=== PATIENT | male | born 1945 | race Caucasian/White ===

== ENCOUNTER → 2021-03-24 11:50 | Outpatient (CLI) | payer MEDICARE, OTHER, SELFPAY ==
--- NOTE | ~2021-03-24 | MR_ITS ---
EXAMINATION: MR lumbar spine wo con DATE: 03/24/2021 13:14 INDICATION: Radiculopathy, lumbar region. Low back pain. TECHNIQUE: Magnetic resonance imaging (MRI) of the lumbar spine was performed without intravenous con trast. Sequences included sagittal T2-weighted FSE, sagittal STIR FSE, sagittal T2-weighted FS FSE, s agittal T1-weighted FSE, and axial T2-weighted FSE. COMPARISON: CT abdomen and pelvis 11/24/2018 FINDINGS: There is 5 degrees levocurvature of lumbar spine. There is 3 mm retrolisthesis of L3 on L4. There are chronic bilateral L5 pars defects. There is 12 mm anterolisthesis of L5 on S1. There is mi ldly decreased disc height at L3-L4 and severely decreased disc height at L5-S1. There is chronic 1/5 height loss of L5 vertebral body posteriorly. The distal spinal cord signal intensity is normal. The conus medullaris is at T12. The following disc levels are specifically discussed: L1-L2: The disc does not extend beyond the endplate margin. There is mild bilateral facet joint osteo arthritis. There is no neural foraminal stenosis. There is no central canal stenosis. L2-L3: The disc is mildly bulging. There is moderate right and mild left facet joint osteoarthritis. There is mild bilateral neural foraminal stenosis. There is no central canal stenosis. L3-L4: The disc is bulging. There is mild bilateral facet joint osteoarthritis. There is moderate rig ht and mild left neural foraminal stenosis. There is mild central canal stenosis. L4-L5: The disc is bulging and has an annular fissure. There is severe bilateral facet joint osteoart hritis. There is moderate right and mild left neural foraminal stenosis. There is mild central canal stenosis. L5-S1: The disc does not extend beyond the endplate margin. There is severe right and moderate left f acet joint osteoarthritis. There is moderate right and mild left neural foraminal stenosis. There is mild central canal stenosis. IMPRESSION: 1. Severe lower lumbar spondylosis. 2. Chronic bilateral L5 pars defects with grade 2 anterolisthesis of L5 on S1. Reviewed, dictated and finalized at location A.
== END ==
PROVIDERS: Visit Provider Nurse Practitioner Adult Health
DX: M47.817 Spondylosis without myelopathy or radiculopathy, lumbosacral region (principal); M48.07 Spinal stenosis, lumbosacral region
CPT/HCPCS: 72148

== ENCOUNTER 2021-12-03 11:42 | Emergency (ER) | payer MEDICARE, OTHER, SELFPAY ==
--- NOTE | ~2021-12-03 | CT_ITS ---
EXAMINATION: CT lumbar spine wo con DATE: 12/03/2021 13:04 INDICATION: Low back pain. Fall. TECHNIQUE: Computed tomography (CT) of the lumbar spine was performed without intravenous contrast. A utomated exposure control and iterative reconstruction technique were employed. The dose-length produ ct was 1305.55 mGy-cm. COMPARISON: CT abdomen and pelvis 11/24/2018 FINDINGS: There are chronic bilateral L5 pars defects. There is 9 mm anterolisthesis of L5 on S1. The re is a compression fracture of superior endplate of L3 with less than 1/5 loss of height. There is s everely decreased disc height at L5-S1 with endplate remodeling. The following disc levels are specif ically discussed: L1-L2: The disc does not extend beyond the endplate margin. There is mild bilateral facet joint osteo arthritis. There is no neural foraminal stenosis. There is no central canal stenosis. L2-L3: The disc is bulging. There is mild bilateral facet joint osteoarthritis. There is mild bilater al neural foraminal stenosis. There is mild central canal stenosis. L3-L4: The disc is bulging. There is mild bilateral facet joint osteoarthritis. There is mild bilater al neural foraminal stenosis. There is mild central canal stenosis. L4-L5: The disc is bulging. There is moderate right and severe left facet joint osteoarthritis. There is mild bilateral neural foraminal stenosis. There is mild central canal stenosis. L5-S1: The disc does not extend beyond the endplate margin. There is moderate bilateral facet joint o steoarthritis. There is moderate right and mild left neural foraminal stenosis. There is mild central canal stenosis. IMPRESSION: 1. Acute versus subacute L3 compression fracture. 2. Chronic bilateral L5 pars defects with grade 2 anterolisthesis of L5 on S1. 3. Severe lower lumbar spondylosis. Reviewed, dictated and finalized at location A.
--- NOTE | ~2021-12-03 | CT_ITS ---
EXAMINATION: CT brain wo con DATE: 12/03/2021 13:04 INDICATION: Head injury. TECHNIQUE: Computed tomography (CT) of the head was performed without intravenous contrast. The mA wa s adjusted according to patient size. Iterative reconstruction technique was employed. The dose-lengt h product was 681.00 mGy-cm. COMPARISON: None FINDINGS: There are scattered areas of low attenuation in the cerebral white matter. There is no intr acranial hemorrhage, acute infarction, or abnormal intracranial mass lesion. The ventricles are priscila l in size. There are likely changes of ocular lens replacement surgeries. There is a posterior scalp hematoma. There is mild mucosal thickening in the paranasal sinuses. There are likely changes of ocul ar lens replacement surgeries. The mastoid air cells are normal. IMPRESSION: 1. Moderate nonspecific cerebral white matter disease, which likely represents chronic small vessel i schemic disease. Reviewed, dictated and finalized at location A. IMPRESSION: 1. Moderate nonspecific cerebral white matter disease, which likely represents chronic small vessel ischemic disease.
[2021-12-03 11:44] VITALS: BP 103/57; PULSE 65; RESP 18; TEMP 36.8; O2SAT 98
[2021-12-03] MEDS: HYDROcodone/acetaminophen (*CRX) 5-325 MG TABLET 1 TAB PO (12:48)
[2021-12-03 12:50] LABS: Basophils Percent Auto 0.5 % (0.2-1.2); Eosinophils Absolute Auto 0.3 K/mm3 (0-0.3); Eosinophils Percent Auto 4.1 % (0-4.4); Hematocrit 39.9 % (42.0-52.0); Hemoglobin 12.3 g/dL (14.0-18.0); Immature Granulocyte Absolute 0.06 K/mm3 (0.00-0.031); Immature Granulocyte Percent A 0.7 % (0-0.5); Lymphocytes Absolute Auto 1.07 K/mm3 (0.9-3.2); Lymphocytes Percent Auto 13.4 % (18.3-44.2); Mean Corpuscular HGB Conc 30.8 g/dl (32-36); Mean Corpuscular Hemoglobin 30.4 pg (26-34); Mean Corpuscular Volume 98.8 fl (80-100); Monocytes Absolute Auto 0.7 K/mm3 (0.1-0.6); Monocytes Percent Auto 8.2 % (2.6-8.5); Neutrophils Absolute Auto 5.9 K/mm3 (1.3-6.7); Neutrophils Percent Auto 73.1 % (45.5-73.1); Platelet Count Result 178 k/mm3 (150-375); Red Blood Count 4.04 M/mm3 (4.6-6.20); Red Cell Distribution Width 14.6 % (11.5-14.5)
[2021-12-03 13:08] LABS: INR 3.2; Partial Thromboplastin Time 46.6 SECONDS (22.3-36.8); Prothrombin Time 31.8 Seconds (11.1-14.7)
[2021-12-03 13:25] LABS: Alanine Aminotransferase 22 U/L (6-50); Albumin Level 3.5 g/dL (3.5-5.1); Alkaline Phosphatase 99 U/L (38-126); Anion Gap 2 mmol/L (8-16); Aspartate Amino Transferase 22 U/L (17-59); Bilirubin,Total 0.3 mg/dL (0.2-1.3); Blood Urea Nitrogen 27 mg/dL (9-20); Calcium 8.2 mg/dL (8.4-10.2); Carbon Dioxide 28 mmol/L (22-30); Chloride 108 mmol/L (98-107); Estimated CRCL calculation 44 ml/min; Estimated Glomerular Filt Rate 49; Glucose 149 mg/dL (65-110); Potassium 4.6 mmol/L (3.4-5.0); Sodium 138 mmol/L (137-145)
[2021-12-03 14:25] LABS: Appearance Urine Clear (Clear); Bilirubin Urine Negative (Negative); Color Urine Yellow (Yellow); Glucose Urine UA Negative (Negative); Ketones Urine Negative (Negative); Leukocyte Esterase Ur Negative LEU/UL (Negative); Nitrate Urine Negative (Negative); Protein Urine Negative (Negative); Urobilinogen Urine 0.2 mg/dL (<2.0); pH Urine 5.5 (5.0-9.0)
[2021-12-03 14:34] LABS: Add Urine Microscopic? YES; Blood Urine Trace-Intact (Negative)
[2021-12-03 14:35] LABS: Bacteria Urine Trace /hpf; Mucus Urine Rare /lpf; Squamous Epithelial Cell Urine Rare /hpf (Few); WBC Urine 0-3 /hpf
--- NOTE | 2021-12-03 15:12 | ED.GENADULT ---
HPI - General Adult General Chief complaint: Fall Stated complaint: fall, back pain Time Seen by Provider: 12/03/21 12:25 Source: RN notes reviewed History of Present Illness HPI narrative: Patient presents emergency department from home for lower back pain. Patient states he fell on Father's Day which was approximately 6 days ago. States that he was outside when he slipped and fell backwards landing on his lower back. He states he did hit his head but had no loss of consciousness states that since that time has had increased pain in his lower back he states he has decreased history of chronic low back pain but is been worse since he fell patient states he has been able to get up and ambulate at home he denies any loss of consciousness headaches, vision changes, neck pain, chest pain, shortness of breath abdominal pain nausea vomiting numbness or tingling in extremities or any other symptoms. Patient states he has not taken any pain medication at home today except that he is chronically on gabapentin he states he is followed at the [facility] Related Data Allergies Allergy/AdvReac Type Severity Reaction Status Date / Time No Known Allergies Allergy Unverified 10/06/18 09:05 Review of Systems Review of Systems: Gen.: Denies fevers or chills Eyes: Denies eye pain or visual change ENT: Denies congestion Respiratory: Denies shortness of breath or cough CV: Denies chest pain GI: Denies abdominal pain nausea, emesis denies bladder incontinence Musculoskeletal: See HPI Neuro: Denies numbness, tingling, weakness or focal weakness Skin: Denies rash Except as documented, all other systems reviewed and negative [facility] Past Medical History Medical History (Updated 12/03/21 @ 15:17 by Gael Mattson DO) DVT (deep venous thrombosis) Social History Social History (Updated 12/03/21 @ 15:14 by Gael Mattson DO) Smoking status: Never smoker Exam Narrative: APPEARANCE: No acute distress, nontoxic, resting in bed EYES: EOMI HEENT: Normocephalic, atraumatic, OMM Neck: Supple no midline tenderness palpation full range of motion without pain RESPIRATORY: No respiratory distress Clear to auscultation bilaterally with no rhonchi wheezing or rales. CARDIOVASCULAR: Regular rate and rhythm without murmurs rubs or gallops. ABDOMINAL: Soft, nontender, nondistended, no rebound or guarding MUSCULOSKELETAl: Moves all extremities. No clubbing, cyanosis or edema. No tenderness of bilateral upper and lower extremities Back: No midline thoracic or lumbar tenderness palpation tender palpation bilateral paravertebral muscles L3-5 NEURO: Awake and alert x 4 Following commands, speech normal, no focal deficits SKIN:: Warm, dry. No rashes lesions or abrasions PSYCHIATRIC: Normal affect/mood, Course Course Emergency Course: Patient able to get up and ambulate in the emergency department. Discussed with patient and his and the patient would prefer to go home at this time. is in agreement Discussed with patient results of workup and diagnosis. Discussed need for follow-up with primary care, proper use of medication, and reasons to return to the emergency department. Patient understands and agrees to current treatment plan Vital Signs Vital signs: Vital Signs Temperature 98.2 F 12/03/21 11:44 Pulse Rate 65 12/03/21 11:44 Respiratory Rate 18 12/03/21 11:44 Blood Pressure 103/57 L 12/03/21 11:44 Pulse Oximetry 98 12/03/21 11:44 Oxygen Delivery Room Air 12/03/21 11:44 Temperature 98.2 F 12/03/21 11:44 Pulse Rate 65 12/03/21 11:44 Respiratory Rate 18 12/03/21 11:44 Blood Pressure 103/57 L 12/03/21 11:44 Pulse Oximetry 98 12/03/21 11:44 Oxygen Delivery Room Air 12/03/21 11:44 Medical Decision Making Vital Signs Vital Signs: Vital Signs Temperature 98.2 F 12/03/21 11:44 Pulse Rate 65 12/03/21 11:44 Respiratory Rate 18 12/03/21 11:44 Blood Pressure 103/57 L 12/03/21 11:44 Pul
== END 2021-12-03 15:30 | disposition home or self-care (01) ==
PROVIDERS: Emergency Provider Emergency Medicine
DX: S32.030A Wedge compression fracture of third lumbar vertebra, initial encounter for closed fracture (principal); Z86.718 Personal history of other venous thrombosis and embolism; R90.82 White matter disease, unspecified; M47.816 Spondylosis without myelopathy or radiculopathy, lumbar region; W01.0XXA Fall on same level from slipping, tripping and stumbling without subsequent striking against object, initial encounter
CPT/HCPCS: 36415; 51701; 70450; 72131; 80053; 81001; 85025; 85610; 85730; 99284; A9270